=== PATIENT | male | born 1965 | race Caucasian/White ===

== ENCOUNTER → 2019-01-30 | Outpatient (CLI) | payer BC ==
[~2019-01-30] MED LIST: ASPITAB37 PO; CITA-77 PO; GEMF600T7 PO; OMEP20TA PO
[2019-01-30 10:54] LABS: Basophils # (auto) 0 uL; Basophils % (auto) 0.4 % (0.0-2.0); Eosinophils # (auto) 0.2 uL; Eosinophils % (auto) 2.4 % (0.0-7.0); Hematocrit 44.3 % (41.0-53.0); Hemoglobin 15.2 g/dL (13.5-17.5); Lymphocytes # (auto) 2.1 uL; Lymphocytes % (auto) 29.3 % (10.0-50.0); Mean Corpuscular Hemoglobin 32.1 pg (28.0-32.0); Mean Corpuscular Hgb Conc. 34.3 g/dL (32.0-36.0); Mean Corpuscular Volume 93.3 fL (80.0-100.0); Monocytes # (auto) 0.5 uL; Monocytes % (auto) 7.6 % (0.0-12.0); Neutrophils # (auto) 4.2 uL; Neutrophils % (auto) 60.3 % (37.0-80.0); Platelet Count (auto) 221 10^3/uL (140-450); Red Blood Cells 4.74 10^6/uL (4.5-5.90); Red Cell Distribution Width 12.7 % (11.8-14.3)
[2019-01-30 11:12] LABS: Urine Blood Negative /uL (Negative); Urine Specific Gravity 1.014 (1.001-1.035)
[2019-01-30 11:37] LABS: Magnesium 2.2 mg/dL (1.6-2.6); Potassium 4.1 mmol/L (3.5-5.1)
[2019-01-30 11:44] LABS: Albumin 4.1 g/dL (3.4-5.0); BUN/Creatinine Ratio 13.6; Bilirubin, Total 0.5 mg/dL (0.2-1.0); Calcium 9.1 mg/dL (8.5-10.1); Total Protein 7.8 g/dL (6.4-8.2); Uric Acid 7.5 mg/dL (3.5-7.2)
[2019-01-30 11:45] LABS: Free T4 (Free Thyroxine) 1.05 ng/dL (0.89-1.76); Prostate Specific Antigen 0.4 ng/mL (0.0-4.0)
[2019-01-30 11:46] LABS: T3 Total 0.88 ng/mL (0.60-1.81)
== END | disposition home or self-care (01) ==
LOC: LAB 10:33
DX: Z12.5 Encounter for screening for malignant neoplasm of prostate (principal); Z12.11 Encounter for screening for malignant neoplasm of colon; K21.9 Gastro-esophageal reflux disease without esophagitis; Z76.89 Persons encountering health services in other specified circumstances
CPT/HCPCS: 36415; 80053; 80061; 81003; 82306; 82607; 83036; 83735; 84153; 84439; 84443; 84480; 84550; 85025

== ENCOUNTER 2019-02-08 20:51 | Emergency (ER) | payer BC ==
[~2019-02-08] VITALS: Ht 185.4 cm; Wt 104.3 kg
[2019-02-08 21:39] LABS: Basophils # (auto) 0.1 uL; Basophils % (auto) 0.7 % (0.0-2.0); Eosinophils # (auto) 0.2 uL; Eosinophils % (auto) 2.4 % (0.0-7.0); Hematocrit 42.1 % (41.0-53.0); Hemoglobin 14.7 g/dL (13.5-17.5); Lymphocytes # (auto) 2.5 uL; Lymphocytes % (auto) 34.2 % (10.0-50.0); Mean Corpuscular Hemoglobin 32.9 pg (28.0-32.0); Mean Corpuscular Hgb Conc. 35.1 g/dL (32.0-36.0); Mean Corpuscular Volume 93.9 fL (80.0-100.0); Monocytes # (auto) 0.6 uL; Monocytes % (auto) 8.5 % (0.0-12.0); Neutrophils % (auto) 54.2 % (37.0-80.0); Nucleated Red Blood Cells % 0.1 %; Platelet Count (auto) 228 10^3/uL (140-450); Red Blood Cells 4.48 10^6/uL (4.5-5.90); Red Cell Distribution Width 12.4 % (11.8-14.3); White Blood Cell 7.5 10^3/uL (4.4-10.8)
[2019-02-08 21:54] LABS: INR 0.99 (0.9-1.15); Partial Thromboplastin Time 24.3 sec (23.64-32.05)
[2019-02-08 21:55] LABS: Albumin 3.8 g/dL (3.4-5.0); Anion Gap 7 (5-15); BUN/Creatinine Ratio 14.5; Blood Urea Nitrogen 22 mg/dL (7-18); Carbon Dioxide 24 mmol/L (21-32); Chloride 108 mmol/L (98-107); GFR African American 62 mL/min; GFR Non-African American 51 mL/min; Glucose 98 mg/dL (74-106); Magnesium 2.2 mg/dL (1.6-2.6); Sodium 139 mmol/L (136-145)
[2019-02-08 22:01] LABS: Alanine Aminotransferase 27 U/L (16-61); Alkaline Phosphatase 57 U/L (45-117); Aspartate Aminotransferase 11 U/L (15-37); Bilirubin, Total 0.2 mg/dL (0.2-1.0); Total Protein 7.4 g/dL (6.4-8.2)
[2019-02-09] MEDS ORDERED: LORazepam 0.5 MG TAB PO ONE
[2019-02-09 04:55] VITALS: BP 125/89
== END 2019-02-09 05:16 | disposition home or self-care (01) ==
LOC: ER 20:53 → EEVIPCON 20:53 → ER 02-09 05:16
DX: F41.9 Anxiety disorder, unspecified (principal); F32.9 Major depressive disorder, single episode, unspecified; K21.9 Gastro-esophageal reflux disease without esophagitis; E78.5 Hyperlipidemia, unspecified; Z88.0 Allergy status to penicillin
CPT/HCPCS: 36415; 71045; 80053; 83036; 83735; 83880; 84484; 85025; 85610; 85730; 93005; 99284; J7030

== ENCOUNTER → 2019-06-11 | Outpatient (CLI) | payer BC ==
[2019-06-11 15:35] LABS: Basophils # (auto) 0 uL; Basophils % (auto) 0.4 % (0.0-2.0); Eosinophils # (auto) 0.1 uL; Eosinophils % (auto) 2.2 % (0.0-7.0); Hematocrit 49.1 % (41.0-53.0); Hemoglobin 16.4 g/dL (13.5-17.5); Lymphocytes # (auto) 2.1 uL; Lymphocytes % (auto) 32.5 % (10.0-50.0); Mean Corpuscular Hemoglobin 31.4 pg (28.0-32.0); Mean Corpuscular Hgb Conc. 33.5 g/dL (32.0-36.0); Mean Corpuscular Volume 93.8 fL (80.0-100.0); Monocytes # (auto) 0.5 uL; Neutrophils # (auto) 3.6 uL; Neutrophils % (auto) 56.9 % (37.0-80.0); Platelet Count (auto) 237 10^3/uL (140-450); Red Blood Cells 5.23 10^6/uL (4.5-5.90); Red Cell Distribution Width 12.4 % (11.8-14.3); White Blood Cell 6.3 10^3/uL (4.4-10.8)
[2019-06-11 15:52] LABS: Urine Bacteria NONE SEEN /hpf (None Seen); Urine Blood Negative /uL (Negative); Urine Specific Gravity 1.011 (1.001-1.035); Urine WBC 7 /hpf (0 - 3)
[2019-06-11 16:05] LABS: Potassium 4.3 mmol/L (3.5-5.1); Uric Acid 6.6 mg/dL (3.5-7.2)
[2019-06-11 16:12] LABS: Albumin 4.2 g/dL (3.4-5.0); Bilirubin, Total 0.7 mg/dL (0.2-1.0); Calcium 9.4 mg/dL (8.5-10.1)
[2019-06-11 16:23] LABS: Free T3 2.99 pg/mL (2.3-4.2); Free T4 (Free Thyroxine) 1.04 ng/dL (0.89-1.76)
[2019-06-11 16:24] LABS: Folate (Folic Acid) 15.14 ng/mL (5.38-24)
== END | disposition home or self-care (01) ==
LOC: LAB 15:08
PROVIDERS: ATTEND Internal Medicine
DX: Z13.228 Encounter for screening for other metabolic disorders (principal); Z13.21 Encounter for screening for nutritional disorder; Z13.29 Encounter for screening for other suspected endocrine disorder; R73.09 Other abnormal glucose; D51.0 Vitamin B12 deficiency anemia due to intrinsic factor deficiency; J44.9 Chronic obstructive pulmonary disease, unspecified; I10 Essential (primary) hypertension; E78.2 Mixed hyperlipidemia
CPT/HCPCS: 36415; 80053; 80061; 81001; 82306; 82607; 82746; 83036; 84436; 84439; 84443; 84481; 84550; 85025; 86376

== ENCOUNTER → 2020-03-26 | Outpatient (CLI) | payer OTHER | END | disposition home or self-care (01) | LOC: LAB 09:17 | PROVIDERS: ATTEND Nurse Practitioner Family | DX: Z20.828 Contact with and (suspected) exposure to other viral communicable diseases (principal) ==

== ENCOUNTER → 2020-07-15 | Outpatient (CLI) | payer OTHER | END | disposition home or self-care (01) | LOC: LAB 08:07 | PROVIDERS: ATTEND Nurse Practitioner Family | DX: U07.1 COVID-19 (principal) | CPT/HCPCS: C9803; U0003 ==

== ENCOUNTER → 2021-01-12 | Outpatient (CLI) | payer BC ==
[~2021-01-12] MED LIST changes: +GEMF-19 PO; -GEMF600T7 PO
[2021-01-12 09:53] LABS: Basophils # (auto) 0.1 10 ^3/uL (0-0.2); Basophils % (auto) 0.5 % (0.0-2.0); Eosinophils # (auto) 0.3 10 ^3/uL (0-0.8); Eosinophils % (auto) 2.7 % (0.0-7.0); Hematocrit 46.8 % (41.0-53.0); Hemoglobin 16.6 g/dL (13.5-17.5); Lymphocytes # (auto) 3.1 10 ^3/uL (0.4-5.4); Lymphocytes % (auto) 29.7 % (10.0-50.0); Mean Corpuscular Hemoglobin 33.1 pg (28.0-32.0); Mean Corpuscular Hgb Conc. 35.4 g/dL (32.0-36.0); Mean Corpuscular Volume 93.6 fL (80.0-100.0); Monocytes # (auto) 0.9 10 ^3/uL (0-1.3); Monocytes % (auto) 8.3 % (0.0-12.0); Neutrophils # (auto) 6.1 10 ^3/uL (1.6-8.6); Neutrophils % (auto) 58.8 % (37.0-80.0); Nucleated Red Blood Cells % 0.3 %; Platelet Count (auto) 281 10^3/uL (140-450); Red Cell Distribution Width 12.5 % (11.8-14.3); White Blood Cell 10.4 10^3/uL (4.4-10.8)
[2021-01-12 10:06] LABS: Albumin 4.3 g/dL (3.4-5.0); Calcium 9.4 mg/dL (8.5-10.1); Potassium 4.2 mmol/L (3.5-5.1)
[2021-01-12 10:10] LABS: BUN/Creatinine Ratio 20.4; Bilirubin, Total 0.4 mg/dL (0.2-1.0); Total Protein 8.9 g/dL (6.4-8.2)
[2021-01-12 11:25] LABS: Prostate Specific Antigen 0.59 ng/mL (0.0-4.0)
== END | disposition home or self-care (01) ==
LOC: LAB 09:39
PROVIDERS: ATTEND Physician Assistant
DX: E78.1 Pure hyperglyceridemia (principal); E78.2 Mixed hyperlipidemia; R35.1 Nocturia; E53.8 Deficiency of other specified B group vitamins; R03.0 Elevated blood-pressure reading, without diagnosis of hypertension; Z87.442 Personal history of urinary calculi
CPT/HCPCS: 36415; 80053; 80061; 82607; 84153; 85025

== ENCOUNTER → 2021-07-29 | Outpatient (CLI) | payer BC ==
[2021-07-29 08:22] LABS: Basophils # (auto) 0.1 10 ^3/uL (0-0.2); Basophils % (auto) 0.6 % (0.0-2.0); Eosinophils # (auto) 0.2 10 ^3/uL (0-0.8); Eosinophils % (auto) 2.4 % (0.0-7.0); Hematocrit 41.9 % (41.0-53.0); Hemoglobin 14.5 g/dL (13.5-17.5); Lymphocytes # (auto) 2.4 10 ^3/uL (0.4-5.4); Lymphocytes % (auto) 29.2 % (10.0-50.0); Mean Corpuscular Hemoglobin 32.4 pg (28.0-32.0); Mean Corpuscular Hgb Conc. 34.6 g/dL (32.0-36.0); Mean Corpuscular Volume 93.6 fL (80.0-100.0); Monocytes # (auto) 0.6 10 ^3/uL (0-1.3); Monocytes % (auto) 6.7 % (0.0-12.0); Neutrophils # (auto) 5.1 10 ^3/uL (1.6-8.6); Neutrophils % (auto) 61.1 % (37.0-80.0); Red Blood Cells 4.48 10^6/uL (4.5-5.90); Red Cell Distribution Width 12.7 % (11.8-14.3); White Blood Cell 8.3 10^3/uL (4.4-10.8)
[2021-07-29 09:37] LABS: Albumin 4.1 g/dL (3.4-5.0); Calcium 9.4 mg/dL (8.5-10.1); Potassium 4.1 mmol/L (3.5-5.1)
[2021-07-29 09:44] LABS: BUN/Creatinine Ratio 19.8; Bilirubin, Total 0.5 mg/dL (0.2-1.0); Total Protein 7.5 g/dL (6.4-8.2)
== END | disposition home or self-care (01) ==
LOC: LAB 08:11
PROVIDERS: ATTEND Nurse Practitioner Family
DX: F41.9 Anxiety disorder, unspecified (principal); E78.2 Mixed hyperlipidemia; F42.9 Obsessive-compulsive disorder, unspecified
CPT/HCPCS: 36415; 80053; 80061; 85025

== ENCOUNTER → 2022-01-03 | Outpatient (CLI) | payer BC | END | disposition home or self-care (01) | LOC: XYW 10:36 | PROVIDERS: ATTEND Internal Medicine | DX: R00.2 Palpitations (principal) | CPT/HCPCS: 93306 ==

== ENCOUNTER → 2022-04-11 | Outpatient (CLI) | payer BC ==
[2022-04-11 09:14] VITALS: BP 146/86
== END | disposition home or self-care (01) ==
LOC: XY 08:11
PROVIDERS: ATTEND Internal Medicine
DX: R00.2 Palpitations (principal); R73.03 Prediabetes; E78.5 Hyperlipidemia, unspecified; F41.1 Generalized anxiety disorder
CPT/HCPCS: 78452; 93017; A9500

== ENCOUNTER → 2022-04-15 | Outpatient (CLI) | payer BC ==
[2022-04-15 13:55] LABS: Basophils # (auto) 0 10 ^3/uL (0-0.2); Basophils % (auto) 0.5 % (0.0-2.0); Eosinophils # (auto) 0.2 10 ^3/uL (0-0.8); Eosinophils % (auto) 2.6 % (0.0-7.0); Hematocrit 42.6 % (41.0-53.0); Hemoglobin 13.9 g/dL (13.5-17.5); Lymphocytes # (auto) 2.6 10 ^3/uL (0.4-5.4); Lymphocytes % (auto) 32.6 % (10.0-50.0); Mean Corpuscular Hemoglobin 30.9 pg (28.0-32.0); Mean Corpuscular Hgb Conc. 32.7 g/dL (32.0-36.0); Mean Corpuscular Volume 94.6 fL (80.0-100.0); Monocytes # (auto) 0.6 10 ^3/uL (0-1.3); Monocytes % (auto) 7.7 % (0.0-12.0); Neutrophils # (auto) 4.5 10 ^3/uL (1.6-8.6); Neutrophils % (auto) 56.6 % (37.0-80.0); Nucleated Red Blood Cells % 0.1 %; Red Cell Distribution Width 12.9 % (11.8-14.3)
[2022-04-15 14:19] LABS: Anion Gap 7 (5-15); Blood Urea Nitrogen 27 mg/dL (7-18); Calcium 9.1 mg/dL (8.5-10.1); Carbon Dioxide 26 mmol/L (21-32); Chloride 105 mmol/L (98-107); Glucose 80 mg/dL (74-106); Potassium 4.6 mmol/L (3.5-5.1); Sodium 138 mmol/L (136-145)
[2022-04-15 14:24] LABS: Alanine Aminotransferase 29 U/L (16-61); Alkaline Phosphatase 65 U/L (45-117); Aspartate Aminotransferase 16 U/L (15-37); BUN/Creatinine Ratio 21.1; Bilirubin, Total 0.3 mg/dL (0.2-1.0); Cholesterol 243 mg/dL (< 200); GFR African American 75 mL/min; GFR Non-African American 62 mL/min; HDL Cholesterol 35 mg/dL (40-59); Total Protein 7.6 g/dL (6.4-8.2); Triglycerides 421 mg/dL (< 150)
[2022-04-15 14:42] LABS: Free T4 (Free Thyroxine) 0.94 ng/dL (0.89-1.76); Prostate Specific Antigen 0.43 ng/mL (0.0-4.0)
== END | disposition home or self-care (01) ==
LOC: LAB 13:45
PROVIDERS: ATTEND Nurse Practitioner Family
DX: Z00.00 Encounter for general adult medical examination without abnormal findings (principal); E78.2 Mixed hyperlipidemia; F41.9 Anxiety disorder, unspecified; R00.2 Palpitations
CPT/HCPCS: 36415; 80053; 80061; 82306; 84153; 84439; 84443; 85025

== ENCOUNTER 2022-07-18 06:39 | Day surgery (SDC) | payer BC ==
[2022-07-13 10:16] LABS: Basophils # (auto) 0 10 ^3/uL (0-0.2); Basophils % (auto) 0.7 % (0.0-2.0); Eosinophils # (auto) 0.2 10 ^3/uL (0-0.8); Eosinophils % (auto) 2.7 % (0.0-7.0); Hematocrit 41.7 % (41.0-53.0); Hemoglobin 14.3 g/dL (13.5-17.5); Lymphocytes # (auto) 2.8 10 ^3/uL (0.4-5.4); Lymphocytes % (auto) 37.7 % (10.0-50.0); Mean Corpuscular Hemoglobin 32.2 pg (28.0-32.0); Mean Corpuscular Hgb Conc. 34.2 g/dL (32.0-36.0); Mean Corpuscular Volume 94.1 fL (80.0-100.0); Monocytes # (auto) 0.6 10 ^3/uL (0-1.3); Monocytes % (auto) 7.6 % (0.0-12.0); Neutrophils # (auto) 3.8 10 ^3/uL (1.6-8.6); Neutrophils % (auto) 51.3 % (37.0-80.0); Nucleated Red Blood Cells % 0.1 %; Red Blood Cells 4.43 10^6/uL (4.5-5.90); Red Cell Distribution Width 12.4 % (11.8-14.3); White Blood Cell 7.4 10^3/uL (4.4-10.8)
[2022-07-13 10:24] LABS: Anion Gap 3 (5-15); Carbon Dioxide 28 mmol/L (21-32); Chloride 108 mmol/L (98-107); Glucose 87 mg/dL (74-106); Potassium 4.4 mmol/L (3.5-5.1); Sodium 139 mmol/L (136-145)
[2022-07-13 10:25] LABS: Alanine Aminotransferase 39 U/L (16-61); Albumin 3.8 g/dL (3.4-5.0); Alkaline Phosphatase 63 U/L (45-117); Aspartate Aminotransferase 19 U/L (15-37); BUN/Creatinine Ratio 14.5; Bilirubin, Total < 0.1 mg/dL (0.2-1.0); Blood Urea Nitrogen 16 mg/dL (7-18); Calcium 9.1 mg/dL (8.5-10.1); GFR African American 89 mL/min; GFR Non-African American 74 mL/min; Total Protein 7.4 g/dL (6.4-8.2)
[2022-07-13 10:27] LABS: INR 1.03 (0.9-1.15); Partial Thromboplastin Time 25.1 sec (24.6-33.4)
[2022-07-18] VITALS (7 sets, daily range): BP systolic 108–137; BP diastolic 68–87
[~2022-07-18] VITALS: Ht 185.4 cm; Wt 106.6 kg
[~2022-07-18 06:39] MED LIST changes: +ALPR0.5T PO; +ASPI1TAB20 PO; +ATOR20TA50 PO; +CITA-73 PO; -CITA-77 PO; +CLOB0.059 TOP; -GEMF-19 PO
[2022-07-18] MEDS ORDERED: ANGIOMAX 250 MG VIAL IV ONE (07:44)
[2022-07-18] MEDS ORDERED: HEPARIN SODIUM (PORCINE) 5000 UNITS/ML 1ML VIAL ONE (07:45)
[2022-07-18] MEDS ORDERED: VERAPAMIL 2.5MG/ML INJ 2ML VIAL IV ONE (07:45)
[2022-07-18] MEDS ORDERED: SODIUM CHL 0.9% 50 ML ONE (07:45)
[2022-07-18] MEDS ORDERED: fentaNYL CITRATE 100 MCG/2 ML VL ONE (07:45)
[2022-07-18] MEDS ORDERED: MIDAZOLAM HCL 2MG/2ML 2ml VIAL (1mg/ml) ONE (07:45)
[2022-07-18] MEDS ORDERED: LIDOCAINE 2%HCL (LOCAL ANESTH.) INJ 20ML MDV ONE ×2 (07:46→08:37)
[2022-07-18] MEDS ORDERED: HEPARIN IN NS 1000Units/500mL 0 ML ONE (07:46)
[2022-07-18] MEDS ORDERED: IODIXANOL 320MG/ML 100ML BTL IV ONE ×2 (07:46→08:37)
[2022-07-18] MEDS ORDERED: ASPirin 325 MG TAB ONE (10:03)
[2022-07-18] MEDS ORDERED: CLOPIDOGREL 300 MG TAB ONE (10:03)
== END 2022-07-18 12:33 | disposition home or self-care (01) ==
LOC: CATH 06:39
PROVIDERS: ATTEND Internal Medicine
DX: I25.10 Atherosclerotic heart disease of native coronary artery without angina pectoris (principal); I10 Essential (primary) hypertension; R94.39 Abnormal result of other cardiovascular function study; R00.2 Palpitations; Z79.899 Other long term (current) drug therapy; Z20.822 Contact with and (suspected) exposure to COVID-19
CPT/HCPCS: 36415; 80053; 85025; 85610; 85730; 93458; C1726; C1769; C1874; C1887; C1894; C9600; J0583; J1644; J2250; J3010; Q9967; U0003; 99152; 99153

== ENCOUNTER → 2023-04-04 | Outpatient (CLI) | payer BC ==
[2023-04-04 08:39] LABS: Basophils # (auto) 0.1 10 ^3/uL (0-0.2); Basophils % (auto) 0.8 % (0.0-2.0); Eosinophils # (auto) 0.3 10 ^3/uL (0-0.8); Eosinophils % (auto) 5.1 % (0.0-7.0); Hematocrit 42.4 % (41.0-53.0); Hemoglobin 14.4 g/dL (13.5-17.5); Lymphocytes # (auto) 2.4 10 ^3/uL (0.4-5.4); Lymphocytes % (auto) 37.5 % (10.0-50.0); Mean Corpuscular Hemoglobin 32.1 pg (28.0-32.0); Mean Corpuscular Hgb Conc. 34.1 g/dL (32.0-36.0); Mean Corpuscular Volume 94.2 fL (80.0-100.0); Monocytes # (auto) 0.6 10 ^3/uL (0-1.3); Monocytes % (auto) 9.5 % (0.0-12.0); Neutrophils % (auto) 47.1 % (37.0-80.0); Nucleated Red Blood Cells % 0.2 %; Red Cell Distribution Width 12.2 % (11.8-14.3); White Blood Cell 6.5 10^3/uL (4.4-10.8)
[2023-04-04 09:17] LABS: Potassium 4.2 mmol/L (3.5-5.1)
[2023-04-04 09:25] LABS: Albumin 3.8 g/dL (3.4-5.0); BUN/Creatinine Ratio 21.7 (10.0-20.0); Bilirubin, Total 0.4 mg/dL (0.2-1.0); Calcium 9.1 mg/dL (8.5-10.1); Total Protein 7.4 g/dL (6.4-8.2)
== END | disposition home or self-care (01) ==
LOC: LAB 08:02
DX: E78.5 Hyperlipidemia, unspecified (principal); R73.03 Prediabetes
CPT/HCPCS: 36415; 80053; 80061; 83036; 84439; 84443; 85025

== ENCOUNTER → 2023-10-06 | Outpatient (CLI) | payer BC ==
[2023-10-06 11:22] LABS: Triglycerides 169 mg/dL (< 150)
[2023-10-06 11:23] LABS: LDL Cholesterol 112 mg/dL (< 100)
[2023-10-06 11:24] LABS: Cholesterol 189 mg/dL (< 200); HDL Cholesterol 45 mg/dL (40-59)
== END | disposition home or self-care (01) ==
LOC: LAB 09:52
DX: E78.5 Hyperlipidemia, unspecified (principal)
CPT/HCPCS: 36415; 80061

== ENCOUNTER → 2023-12-12 | Outpatient (CLI) | payer BC | END | disposition home or self-care (01) | LOC: XYW 08:35 | PROVIDERS: ATTEND Internal Medicine | DX: I25.10 Atherosclerotic heart disease of native coronary artery without angina pectoris (principal); I51.7 Cardiomegaly | CPT/HCPCS: 93306 ==

== ENCOUNTER → 2024-07-10 | Outpatient (CLI) | payer BC ==
[2024-07-10 08:29] LABS: Basophils # (auto) 0.1 10 ^3/uL (0-0.2); Basophils % (auto) 0.6 % (0.0-2.0); Eosinophils # (auto) 0.4 10 ^3/uL (0-0.8); Eosinophils % (auto) 3.7 % (0.0-7.0); Hematocrit 42.8 % (41.0-53.0); Lymphocytes # (auto) 2.4 10 ^3/uL (0.4-5.4); Mean Corpuscular Hgb Conc. 35.1 g/dL (32.0-36.0); Mean Corpuscular Volume 94.1 fL (80.0-100.0); Monocytes # (auto) 0.9 10 ^3/uL (0-1.3); Monocytes % (auto) 7.9 % (0.0-12.0); Neutrophils # (auto) 7.2 10 ^3/uL (1.6-8.6); Neutrophils % (auto) 65.8 % (37.0-80.0); Platelet Count (auto) 250 10^3/uL (140-450); Red Blood Cells 4.55 10^6/uL (4.5-5.90); Red Cell Distribution Width 12.4 % (11.8-14.3); White Blood Cell 10.9 10^3/uL (4.4-10.8)
[2024-07-10 08:47] LABS: Alanine Aminotransferase 27 U/L (7-40); Albumin 4.5 g/dL (3.2-4.8); Alkaline Phosphatase 73 U/L (46-116); Anion Gap 7 (5-15); Aspartate Aminotransferase 11 U/L (13-40); BUN/Creatinine Ratio 17.8 (10.0-20.0); Blood Urea Nitrogen 19 mg/dL (9-23); Calcium 10.2 mg/dL (8.7-10.4); Carbon Dioxide 27 mmol/L (20-31); Chloride 106 mmol/L (98-107); Cholesterol 240 mg/dL (< 200); Glucose 88 mg/dL (74-106); LDL Cholesterol 150 mg/dL (< 100); Potassium 4.8 mmol/L (3.5-5.1); Sodium 140 mmol/L (136-145); Triglycerides 227 mg/dL (< 150)
[2024-07-10 08:48] LABS: Bilirubin, Total 0.4 mg/dL (0.2-1.0); HDL Cholesterol 43 mg/dL (40-59); Total Protein 7.5 g/dL (5.7-8.2)
== END | disposition home or self-care (01) ==
LOC: LAB 07:37
PROVIDERS: ATTEND Nurse Practitioner Family
DX: I10 Essential (primary) hypertension (principal); E78.5 Hyperlipidemia, unspecified; R73.03 Prediabetes; R68.82 Decreased libido; F41.1 Generalized anxiety disorder; Z79.899 Other long term (current) drug therapy
CPT/HCPCS: 36415; 80053; 80061; 82043; 83036; 84153; 84403; 84443; 85025

== ENCOUNTER → 2024-08-06 | Outpatient (CLI) | payer BC | END | disposition home or self-care (01) | LOC: LAB 12:07 | PROVIDERS: ATTEND Nurse Practitioner Family | DX: R79.89 Other specified abnormal findings of blood chemistry (principal) | CPT/HCPCS: 36415; 84153; 84403 ==

== ENCOUNTER → 2024-12-31 | Outpatient (CLI) | payer BC ==
[2024-12-31 09:47] LABS: Basophils # (auto) 0 10 ^3/uL (0-0.2); Basophils % (auto) 0.5 % (0.0-2.0); Eosinophils # (auto) 0.3 10 ^3/uL (0-0.8); Eosinophils % (auto) 3.3 % (0.0-7.0); Hematocrit 44.7 % (41.0-53.0); Hemoglobin 15.5 g/dL (13.5-17.5); Lymphocytes # (auto) 2.7 10 ^3/uL (0.4-5.4); Lymphocytes % (auto) 34.3 % (10.0-50.0); Mean Corpuscular Hemoglobin 32.5 pg (28.0-32.0); Mean Corpuscular Hgb Conc. 34.7 g/dL (32.0-36.0); Mean Corpuscular Volume 93.5 fL (80.0-100.0); Monocytes # (auto) 0.6 10 ^3/uL (0-1.3); Neutrophils # (auto) 4.3 10 ^3/uL (1.6-8.6); Neutrophils % (auto) 53.9 % (37.0-80.0); Nucleated Red Blood Cells % 0.1 %; Platelet Count (auto) 209 10^3/uL (140-450); Red Blood Cells 4.78 10^6/uL (4.5-5.90); Red Cell Distribution Width 12.9 % (11.8-14.3); White Blood Cell 7.9 10^3/uL (4.4-10.8)
[2024-12-31 10:10] LABS: Alanine Aminotransferase 31 U/L (7-40); Albumin 4.6 g/dL (3.2-4.8); Alkaline Phosphatase 64 U/L (46-116); Anion Gap 8 (5-15); Aspartate Aminotransferase 14 U/L (13-40); BUN/Creatinine Ratio 19.8 (10.0-20.0); Bilirubin, Total 0.5 mg/dL (0.2-1.0); Blood Urea Nitrogen 20 mg/dL (9-23); Calcium 10.2 mg/dL (8.7-10.4); Carbon Dioxide 24 mmol/L (20-31); Chloride 106 mmol/L (98-107); Glucose 99 mg/dL (74-106); Potassium 4.5 mmol/L (3.5-5.1); Sodium 138 mmol/L (136-145); Total Protein 7.7 g/dL (5.7-8.2)
== END | disposition home or self-care (01) ==
LOC: LAB 09:11
PROVIDERS: ATTEND Internal Medicine
DX: I10 Essential (primary) hypertension (principal); I25.10 Atherosclerotic heart disease of native coronary artery without angina pectoris; E78.5 Hyperlipidemia, unspecified; R79.89 Other specified abnormal findings of blood chemistry
CPT/HCPCS: 36415; 80053; 84153; 84403; 85025

== ENCOUNTER 2025-01-07 11:10 | Inpatient (IN) | payer BC ==
[~2025-01-07] VITALS: Ht 188 cm; Wt 107.4 kg
--- NOTE | 2025-01-07 11:25 | ED.PDOC ---
GI ASSESSMENT HPI Comments 59-year-old male with PMHx Anxiety, Depression, GERD brought in by EMS presents with a chief complaint of abdominal pain with associated nausea, vomiting, and diarrhea. Patient states that last night he ate Sudanese food last night, and this morning around 0300 started to have onset of his symptoms. Patient mentions that his abdominal pain is diffuse, nonradiating, and started hurting after the vomiting. Patient mentions that he has been unable to hold anything down. Patient has history of heart stents. No other symptoms or modifying factors present at this time. Chief Complaint: Nausea/Vomiting Time Seen by MD: 11:14 Reviewed Notes: Medications, Allergies Allergies: Coded Allergies: Penicillins (Verified Allergy, Unknown, 12/18/17) Home Meds Reported Medications Clobetasol Propionate (Clobetasol Propionate) 0.05 % Renetta, 1 APPLIC TOP BID for scalp 07/13/22 Alprazolam (Xanax) 0.5 Mg Tb, 1 TAB PO TID PRN for ANXIETY 07/13/22 Citalopram Hydrobromide (Citalopram Hydrobromide) 40 Mg Tab, 40 MG PO DAILY for depression 07/13/22 Atorvastatin Calcium (ATORVASTATIN CALCIUM) 20 Mg Tab, 1 TAB PO DAILY for cholesterol 07/13/22 Aspirin (Aspir-81) 81 Mg Tab, 1 TAB PO DAILY for heart 07/13/22 Ifsqnnl-Juhgiebfsnwwc-Zccccwiy (Excedrin Extra Strength) Expr Gel Tab, 1 GEL PO PRN, TAB 12/18/17 Omeprazole (Gnp Omeprazole) 20 Mg Tab, 1 TAB PO DAILY 12/18/17 Information Source: Patient, Emergency Med Personnel Mode of Arrival: EMS Timing: Hours Duration: Since onset Prehospital treatment: Research Attorney Quality: Aching Vomitus: Food Particles Stool: Watery, Brown Severity: Moderate Recent: None Recent Hx of: None Pain Location: Diffuse Modifying Factors: Food Associated sign and symptoms: Nausea, Vomiting, Diarrhea, Abdominal Pain Past Medical History PAST MEDICAL HISTORY: Anxiety, Depression, GERD, High Lipids Surgical History: PTCA Family History Family History: Unknown Social History Smoker: Non-Smoker Alcohol: Occasionally Drugs: Denies Drug Use Lives In: Home Constitutional: denies: chills, diaphoresis, fatigue, fever, malaise, sweats, weakness, others EENTM: denies: blurred vision, double vision, ear bleeding, ear discharge, ear drainage, ear pain, ear ringing, eye pain, eye redness, hearing loss, mouth pain, mouth swelling, nasal discharge, nose bleeding, nose congestion, nose pain, photophobia, tearing, throat pain, throat swelling, voice changes, others Respiratory: denies: cough, hemoptysis, orthopnea, SOB at rest, shortness of breath, SOB with excertion, stridor, wheezing, others Cardiovascular: denies: chest pain, dizzy spells, diaphoresis, Dyspnea on exertion, edema, irregular heart beat, left arm pain, lightheadedness, palpitations, PND, syncope, others Gastrointestinal: reports: abdominal pain, diarrhea, nausea, vomiting; denies: abdomen distended, blood streaked bowels, constipated, dysphagia, difficulty swallowing, hematemesis, melena, poor appetite, poor fluid intake, rectal bleeding, rectal pain, others Genitourinary: denies: burning, dysuria, flank pain, frequency, hematuria, incontinence, penile discharge, penile sore, pain, testicle pain, testicle swelling, urgency, others Neurological: denies: dizziness, fainting, headache, left sided numbness, left sided weakness, numbness, paresthesia, pre-existing deficit, right sided numbness, right sided weakness, seizure, speech problems, tingling, tremors, weakness, others Musculoskeletal: denies: back pain, gout, joint pain, joint swelling, muscle pain, muscle stiffness, neck pain, others Integumetry: denies: bruises, change in color, change in hair/nails, dryness, laceration, lesions, lumps, rash, wounds, others Allergic/Immunocompromised: denies: Difficulty Healing, Frequent Infections, Hives, Itching, others Hematologic/Lymphatic: denies: anemia, blood clots, easy bleeding, easy bruising, swollen glands, others Endocrine: denies: excessive hunger, excessive sweating, excessive thirst, excessive urination, flushing, intolerance to cold, intolerance to heat, unexplained weight gain, unexplained weight loss, others Psychiatric: denies: anxiety, bipolar disorder, depression, hopeless, panic disorder, schizophrenia, sleepless, suicidal, others All Other Systems: Reviewed and Negative Physical Exam General Appearance: No Apparent Distress, Normal HEENT: Normal ENT Inspection, Pharynx Normal, TMs Normal Neck: Full Range of Motion, Non-Tender, Normal, Normal Inspection Respiratory: Chest Non-Tender, Lungs Clear, No Accessory Muscle Use, No Respiratory Distress, Normal Breath Sounds Cardiovascular: No Edema, No JVD, No Murmur, No Gallop, Normal Peripheral Pulses, Tachycardia Breast Exam: Deferred Gastrointestinal: No Organomegaly, Non Tender, No Pulsatile Mass, Normal Bowel Sounds, Soft Genitalia: Deferred Pelvic: Deferred Rectal: Deferred Extremities: No calf tenderness, Normal capillary refill, Normal inspection, Normal range of motion, Non-tender, No pedal edema Musculoskeletal : Apperance: Normal Neurologic: Alert, private duty rn II-XII nml as Tested, No Motor Deficits, Normal Affect, Normal Mood, No Sensory Deficits Cerebellar Function: Normal Reflexes: Normal Skin: Dry, Normal Color, Warm Lymphatic: No Adenopathy EKG EKG : Pulse Rate (adult): 86 Pruden: Normal Cardiac Rhythm: NSR Block: None Hypertrophy: None ST: Normal Was a procedure done? Was a procedure done?: No GI differential Dx Differential Diagnosis: AAA, Aortic dissection, Bowel Obstruction, Constipation, Diverticular disease, Gastritis/PUD, Gastroenteritis, Hernia, Hepatitis, Inflammatory BD, Pancreatitis, Urinary Obstruction, UTI, Urolithiasis, Dehydration, Food Poisoning, Bacterial, Viral, Hypovolemia, Impaction, Mass, Kidney Stone X-Ray, Labs, Meds, VS Vital Signs Date Time Temp Pulse Resp B/P (MAP) Pulse Ox O2 Delivery O2 Flow Rate FiO2 01/07/25 13:00 84 19 158/108 (125) 99 01/07/25 13:00 83 19 99 Room Air* 0 21 01/07/25 11:25 86 01/07/25 11:18 97.7 85 20 168/100 (122) 96 97.7 01/07/25 11:18 86 Lab Test 01/07/25 11:33 Range/Units White Blood Count 14.6 H 4.4-10.8 10^3/uL Red Blood Count 4.90 4.5-5.90 10^6/uL Hemoglobin 15.6 13.5-17.5 g/dL Hematocrit 45.8 41.0-53.0 % Mean Corpuscular Volume 93.4 80.0-100.0 fL Mean Corpuscular Hemoglobin 31.8 28.0-32.0 pg Mean Corpuscular Hemoglobin Concent 34.1 32.0-36.0 g/dL Red Cell Distribution Width 13.0 11.8-14.3 % Platelet Count 265 140-450 10^3/uL Mean Platelet Volume 8.6 6.9-10.8 fL Neutrophils (%) (Auto) 90.7 H 37.0-80.0 % Lymphocytes (%) (Auto) 6.1 L 10.0-50.0 % Monocytes (%) (Auto) 3.0 0.0-12.0 % Eosinophils (%) (Auto) 0.0 0.0-7.0 % Basophils (%) (Auto) 0.2 0.0-2.0 % Neutrophils # (Auto) 13.3 H 1.6-8.6 10 ^3/uL Lymphocytes # (Auto) 0.9 0.4-5.4 10 ^3/uL Monocytes # (Auto) 0.4 0-1.3 10 ^3/uL Eosinophils # (Auto) 0 0-0.8 10 ^3/uL Basophils # (Auto) 0 0-0.2 10 ^3/uL Nucleated Red Blood Cells 0.0 % Sodium Level 144 136-145 mmol/L Potassium Level 4.3 3.5-5.1 mmol/L Chloride Level 105 98-107 mmol/L Carbon Dioxide Level 21 20-31 mmol/L Anion Gap 18 H 5-15 Blood Urea Nitrogen 15 9-23 mg/dL Creatinine 0.88 0.700-1.30 mg/dL Glomerular Filtration Rate Calc 99 >90 mL/min BUN/Creatinine Ratio 17.0 10.0-20.0 Serum Glucose 141 H 74-106 mg/dL Calcium Level 9.9 8.7-10.4 mg/dL Lipase 29 12-53 U/L Current Medications Medications (Trade) Dose Ordered Sig/Thomas Route Start Time Stop Time Status Last Admin Diphenoxylate HCl/ Atropine (Lomotil Tablet) 2.5 mg ONCE ONCE PO 01/07/25 11:30 01/07/25 11:31 DC 01/07/25 12:02 Ondansetron HCl (Zofran) 4 mg ONCE ONCE IV 01/07/25 11:30 01/07/25 11:31 DC 01/07/25 12:02 Sodium Chloride 1,000 ml @ 1,000 mls/hr Q1H ONCE IV 01/07/25 11:30 01/07/25 12:29 DC 01/07/25 12:02 Ondansetron HCl (Zofran) 4 mg ONCE ONCE IV 01/07/25 12:30 01/07/25 12:31 DC 01/07/25 12:42 Haloperidol Lactate (Haldol) 5 mg ONCE ONCE IM 01/07/25 13:45 01/07/25 13:46 DC 01/07/25 14:48 Diphenhydramine HCl (Benadryl Injection) 50 mg ONCE ONCE IM 01/07/25 13:45 01/07/25 13:46 DC 01/07/25 14:48 Time of 1ST Reevaluation: 11:44 Reevaluation 1ST: Unchanged Time of 2ND Reevaluation: 15:13 Reevaluation 2ND: Improved Patient Education/Counseling: Diagnosis, Treatment, Prognosis, Need For Follow Up Family Education/Counseling: No Family Present Additional Information pt is feeling improved, but still feels a dull pain on the right flank. the ct shows an exophytic lesion. pt will be admitted for an MRI and pain control Departure 1 Departure Time of Disposition: 15:14 Impression: Primary Impression: Renal mass, right Disposition: 09 ADMITTED INPATIENT Admit to: Med Surg Condition: Serious Discharged With: Self, Friend Critical Care Note Critical Care Time?: Yes (45 min-critical care time only) Critical care comment: due to concerns for patient's condition deteriorating, the care required my highest level of attention and readiness to intervene. i assessed the patient's condition, ordered the proper tests and treatments, reassessed for response and reviewed the results. i communicated with medical personnel and formulated a plan of care. total critical care time does not include any procedures Stability Stability form required: No Heart Score Heart Score: Heart Score Response (Comments) Value History N/A 0 EKG N/A 0 Age N/A 0 Risk Factors N/A 0 Troponin N/A 0 Total 0 I personally scribed for JOSEFINA MEJIA MD ([email or web address]) on 01/07/25 at 11:25. Electronically submitted by Simba Farah ([email or web address]). JOSEFINA MEJIA MD January 07, 2025 11:25
[2025-01-07 11:47] LABS: Basophils # (auto) 0 10 ^3/uL (0-0.2); Basophils % (auto) 0.2 % (0.0-2.0); Eosinophils # (auto) 0 10 ^3/uL (0-0.8); Hematocrit 45.8 % (41.0-53.0); Hemoglobin 15.6 g/dL (13.5-17.5); Lymphocytes # (auto) 0.9 10 ^3/uL (0.4-5.4); Lymphocytes % (auto) 6.1 % (10.0-50.0); Mean Corpuscular Hemoglobin 31.8 pg (28.0-32.0); Mean Corpuscular Hgb Conc. 34.1 g/dL (32.0-36.0); Mean Corpuscular Volume 93.4 fL (80.0-100.0); Monocytes # (auto) 0.4 10 ^3/uL (0-1.3); Neutrophils # (auto) 13.3 10 ^3/uL (1.6-8.6); Neutrophils % (auto) 90.7 % (37.0-80.0); Platelet Count (auto) 265 10^3/uL (140-450); White Blood Cell 14.6 10^3/uL (4.4-10.8)
[2025-01-07 11:56] LABS: Chloride 105 mmol/L (98-107); Potassium 4.3 mmol/L (3.5-5.1); Sodium 144 mmol/L (136-145)
[2025-01-07 11:57] LABS: Anion Gap 18 (5-15); Calcium 9.9 mg/dL (8.7-10.4); Carbon Dioxide 21 mmol/L (20-31)
[2025-01-07 12:02] LABS: Blood Urea Nitrogen 15 mg/dL (9-23); Lipase 29 U/L (12-53)
[2025-01-07] MEDS: ONDANSETRON HCL 4 MG/2 ML VIAL IV ONE ×2 (12:02→12:42)
[2025-01-07] MEDS: SODIUM CHLORIDE 0.9% 1,000 ML IV ONE (12:02)
[2025-01-07] MEDS: DIPHENOXYLATE W/ATROPINE 2.5 MG TAB PO ONE (12:02)
[2025-01-07 12:03] LABS: Glucose 141 mg/dL (74-106)
--- NOTE | 2025-01-07 12:51 | DVH ---
Date: 01/07/2025 12:15 PM Examination: XY KUB ABDOMEN SINGLE VIEW History: vomiting Comparison: None TECHNIQUE: Frontal views of the abdomen was obtained. FINDINGS: Paucity of bowel gas limits evaluation. The lung bases are unremarkable. No acute osseous abnormality identified. IMPRESSION: Paucity of bowel gas limits evaluation
[2025-01-07 13:00] VITALS: PULSE 83; RESP 19; O2SAT 99
--- NOTE | 2025-01-07 14:16 | DVH ---
CT ABDOMEN AND PELVIS WITHOUT CONTRAST CLINICAL HISTORY: r/o ileus, sbo TECHNIQUE: Multiple contiguous axial images of the abdomen and pelvis without intravenous contrast. T he images were reformatted degenerate coronal and sagittal reconstructions. All CT scans at this medical facility are performed using dose modulation techniques as appropriate t o a performed exam including the following:Automated exposure control was utilized; adjustment of the MA and/or KV according to patient size; and use of iterative reconstruction technique. Radiation Dose Information: CT Dose: CTDI volume is 14.69 mGy. Dose-length product is 914.01 mGy*cm Comparison: None. FINDINGS: Evaluation of the abdomen and pelvis is limited without intravenous contrast. There is a 1.7 cm exophytic solid-appearing isodense nodule in the upper pole of the right kidney. Th ere is no evidence of nephrolithiasis or hydronephrosis. The liver, gallbladder, pancreas, kidneys, adrenal glands, and spleen appear within normal limits. There is no gross evidence of abdominal lymphadenopathy. There is no free fluid or free air. The stomach grossly appears unremarkable. The small and large bowel loops demonstrate normal caliber and distribution. The colon is mostly decompressed. A normal appearing appendix is seen in the right lower quadrant abdomen. The abdominal aorta and IVC appear within normal limits. The bladder appears unremarkable for the degree of distention. Pelvic organ appears within normal colon its. There is no gross evidence of a pelvic mass. There is no free fluid collection. There is a smal l fat containing left inguinal hernia. Lung bases are clear. There is no acute osseous abnormality. IMPRESSION: 1. There is no acute process in the abdomen and pelvis. 2. Nonspecific 1.7 cm exophytic solid-appearing isodense nodule in the upper pole of the right kidney . Further evaluation with multiphase MRI abdomen with contrast is recommended. HS:Y
[2025-01-07] MEDS: diphenhdrAMINE HCL 50 MG/1 ML VL IM ONE (14:48)
[2025-01-07] MEDS: HALOPERIDOL LACTATE 5 MG/ML INJ VIAL IM ONE (14:48)
[2025-01-07] MEDS ORDERED: ONDANSETRON HCL 4 MG/2 ML VIAL IV PRN (16:00)
[2025-01-07] MEDS ORDERED: DOCUSATE SOD 100 MG CAP PO PRN (16:00)
[2025-01-07] MEDS ORDERED: HYDROcodone-ACET 5/325MG TAB PO PRN (16:00)
[2025-01-07] MEDS ORDERED: ACETAMINOPHEN 325 MG TAB PO PRN (16:00)
[2025-01-07] MEDS ORDERED: NITROGLYCERIN 0.4 MG SL TAB SL PRN (16:30)
[2025-01-07] MEDS ORDERED: MORPHINE SULFATE INJ 2 MG/ml SYRG IV PRN (16:30)
--- NOTE | 2025-01-07 16:31 | DVHHP2 ---
History of Present Illness Reason for Visit: Acute abdominal pain History of Present Illness The patient is a 59-year-old male with past medical history of depression, anxiety, GERD, and hyperlipidemia who presented to [facility] ED with complaint of acute abdominal pain. Patient reports symptoms progressively get worse with nausea, vomiting, and diarrhea. Patient states that last night he ate Burmese food last night, and this morning around 0300 started to have onset of his symptoms, nonradiating, and started hurting after the vomiting. Patient was seen and evaluated in the ED, laboratory data shows WBC 14.6, platelets 265, sodium 144, potassium 4.3, BUN 15, creatinine 0.88, glucose 141, anion gap 18, lipase 29, blood pressure 145/89, heart rate 84, temperature 98.7 F, O2 saturation 99% on room air. Abdomen/pelvis CT revealing nonspecific 1.7 cm exophytic solid appearing isodense nodules in the upper pole of the right kidney, no acute process in the abdomen and pelvis. Patient was started on IV antibiotic regimen Flagyl, please see medication orders section in the computer. On my assessment, patient denies abdominal pain at this moment, no headache, no dizziness, no shortness of breaths, no nausea, vomiting, or diarrhea at this moment, no fever, no chills. Patient was admitted for further evaluation and medical management. Past Medical History Anxiety, Depression, GERD, High Lipids Past Surgical History PTCA Family History Reviewed, noncontributory to the management of this case. Past Social History The patient lives at home, denies smoking, alcohol or illicit drugs abuse. Review of Systems Constitutional: No: Fever, Chills, Sweats, Weakness, Malaise, Other Eyes: No: Pain, Vision change, Conjunctivae inflammation, Eyelid inflammation, Other, Redness ENT: No: Ear pain, Ear discharge, Nose pain, Nose discharge, Nose congestion, Mouth pain, Mouth swelling, Throat pain, Throat swelling, Other Respiratory: No: Cough, Dry, Shortness of breath, SOB with excertion, Wheezing, Hemoptysis, Pleuritic Pain, Sputum, Wheezing, Other Cardiovascular: No: Chest Pain, Palpitations, Orthopnea, Paroxysmal Noc. Dyspnea, Edema, Lt Headedness, Other Gastrointestinal: Nausea, Vomiting, Abdominal Pain, Diarrhea; No: Constipation, Melena, Hematochezia, Other Genitourinary: No Dysuria, No Frequency, No Incontinence, No Hematuria, No Retention, No Other Musculoskeletal: No: other, neck pain, shoulder pain, arm pain, back pain, hand pain, leg pain, foot pain Skin: No: Rash, Lesions, Jaundice, Bruising, Other Neurological: No: Weakness, Numbness, Incoordination, Change in speech, Confusion, Seizures, Other Allergies: Coded Allergies: Penicillins (Verified Allergy, Unknown, 12/18/17) Medications Current Medications Medications Dose Ordered Sig/Thomas Route Start Time Stop Time Status Last Admin Dose Admin Alprazolam 0.5 mg Q8HPRN PRN PO 01/07/25 16:00 UNV Famotidine 20 mg DAILY IV 01/08/25 10:00 UNV Citalopram Hydrobromide 40 mg DAILY PO 01/08/25 10:00 UNV Atorvastatin Calcium 20 mg HS PO 01/07/25 22:00 UNV Aspirin 81 mg DAILY PO 01/08/25 10:00 UNV Metronidazole 100 ml @ 100 mls/hr Q8HR IV 01/07/25 22:00 UNV Acetaminophen/ Hydrocodone Bitart 1 tab Q4HP PRN PO 01/07/25 16:00 UNV Ondansetron HCl 4 mg Q4HP PRN IV 01/07/25 16:00 UNV Docusate Sodium 100 mg BIDPRN PRN PO 01/07/25 16:00 UNV Acetaminophen 650 mg Q6HP PRN PO 01/07/25 16:00 UNV Sodium Chloride 1,000 ml @ 75 mls/hr [id number] IV 01/07/25 16:00 UNV Exam Vital Signs Vital Signs Date Time Temp Pulse Resp B/P (MAP) Pulse Ox O2 Delivery O2 Flow Rate FiO2 01/07/25 15:33 98.7 109 19 145/89 (107) 95 98.7 01/07/25 13:00 Room Air* 0 21 General Appearance: Alert, Oriented X3, Cooperative, No acute distress HEENT: Atraumatic, PERRLA, EOMI, Mucous membr. moist/pink Respiratory: Clear to auscultation, Normal air movement Cardiovascular: Regular rate, Normal S1, Normal S2, No murmurs Abdominal: Normal bowel sounds, Soft, No hepatospenomegaly, No masses, Other (Reports tenderness) Extremities: No clubbing, No cyanosis, No edema, Normal pulses, No tenderness/swelling Skin: No rashes, No breakdown, No significant lesion Neuro: Normal gait, Normal speech, Strength at 5/5 X4 ext, Normal tone, Sensation intact, Cranial nerves 3-12 NL, Reflexes 2+ Psych/Mental Status: Mental status NL, Mood NL Labs/Xrays Labs Test 01/07/25 11:33 Range/Units White Blood Count 14.6 H 4.4-10.8 10^3/uL Red Blood Count 4.90 4.5-5.90 10^6/uL Hemoglobin 15.6 13.5-17.5 g/dL Hematocrit 45.8 41.0-53.0 % Mean Corpuscular Volume 93.4 80.0-100.0 fL Mean Corpuscular Hemoglobin 31.8 28.0-32.0 pg Mean Corpuscular Hemoglobin Concent 34.1 32.0-36.0 g/dL Red Cell Distribution Width 13.0 11.8-14.3 % Platelet Count 265 140-450 10^3/uL Mean Platelet Volume 8.6 6.9-10.8 fL Neutrophils (%) (Auto) 90.7 H 37.0-80.0 % Lymphocytes (%) (Auto) 6.1 L 10.0-50.0 % Monocytes (%) (Auto) 3.0 0.0-12.0 % Eosinophils (%) (Auto) 0.0 0.0-7.0 % Basophils (%) (Auto) 0.2 0.0-2.0 % Neutrophils # (Auto) 13.3 H 1.6-8.6 10 ^3/uL Lymphocytes # (Auto) 0.9 0.4-5.4 10 ^3/uL Monocytes # (Auto) 0.4 0-1.3 10 ^3/uL Eosinophils # (Auto) 0 0-0.8 10 ^3/uL Basophils # (Auto) 0 0-0.2 10 ^3/uL Nucleated Red Blood Cells 0.0 % Sodium Level 144 136-145 mmol/L Potassium Level 4.3 3.5-5.1 mmol/L Chloride Level 105 98-107 mmol/L Carbon Dioxide Level 21 20-31 mmol/L Anion Gap 18 H 5-15 Blood Urea Nitrogen 15 9-23 mg/dL Creatinine 0.88 0.700-1.30 mg/dL Glomerular Filtration Rate Calc 99 >90 mL/min BUN/Creatinine Ratio 17.0 10.0-20.0 Serum Glucose 141 H 74-106 mg/dL Calcium Level 9.9 8.7-10.4 mg/dL Lipase 29 12-53 U/L PATIENT: CORI MARX ACCT: [id number] UNIT: [id number] : 1965 LOC: ER ROOM / BED: / AGE / SEX: 59 / M ADM STATUS: REG ER SERVICE 1335 ORDERING PHYSICIAN: JOSEFINA MEJIA MD PROCEDURE(s): ABPL - CT AB PEL WO CON-NO ORAL OR IV REASON: r/o ileus, sbo ORDER NUMBER(s): [id number], ACCESSION NUMBER(s): [id number] CT ABDOMEN AND PELVIS WITHOUT CONTRAST CLINICAL HISTORY: r/o ileus, sbo TECHNIQUE: Multiple contiguous axial images of the abdomen and pelvis without intravenous contrast. The images were reformatted degenerate coronal and sagittal reconstructions. All CT scans at this medical facility are performed using dose modulation techniques as appropriate to a performed exam including the following:Automated exposure control was utilized; adjustment of the MA and/or KV according to patient size; and use of iterative reconstruction technique. Radiation Dose Information: CT Dose: CTDI volume is 14.69 mGy. Dose-length product is 914.01 mGy*cm Comparison: None. FINDINGS: Evaluation of the abdomen and pelvis is limited without intravenous contrast. There is a 1.7 cm exophytic solid-appearing isodense nodule in the upper pole of the right kidney. There is no evidence of nephrolithiasis or hydronephrosis. The liver, gallbladder, pancreas, kidneys, adrenal glands, and spleen appear within normal limits. There is no gross evidence of abdominal lymphadenopathy. There is no free fluid or free air. The stomach grossly appears unremarkable. The small and large bowel loops de monstrate normal caliber and distribution. The colon is mostly decompressed. A normal appearing appendix is seen in the right lower quadrant abdomen. The abdominal aorta and IVC appear within normal limits. The bladder appears unremarkable for the degree of distention. Pelvic organ appears within normal limits. There is no gross evidence of a pelvic mass. There is no free fluid collection. There is a small fat containing left inguinal hernia. Lung bases are clear. There is no acute osseous abnormality. IMPRESSION: 1. There is no acute process in the abdomen and pelvis. 2. Nonspecific 1.7 cm exophytic solid-appearing isodense nodule in the upper pole of the right kidney. Further evaluation with multiphase MRI abdomen with contrast is recommended. Assessment/Plan Assessment/Plan Acute abdominal pain Leukocytosis, unspecified Renal mass, right Intractable nausea and vomiting Plan 1. Admit to med surge unit 2. Breathing treatment 3. Pain control management 4. IV antibiotic management 5. Management of fluids and electrolytes 6. Consultation for hospitalist 7. Diagnostic test abdomen/pelvis CT 8. DVT prophylaxis on SCDs 9. Repeat labs CBC, CMP in a.m. 10. Home medication reviewed and reconciled 11. Continue with current medical management 12. Treatment plan discussed with patient and RN. Patient verbalized understanding. Plan discussed with: Patient, Other (RN) My Orders Orders - KEVON WILEY DNP Procedure Category Date Status Time Alprazolam Tablet PHA 01/07/25 In Process (Xanax Tablet) 16:00 Famotidine Injection PHA 01/08/25 In Process (Pepcid Injection) 10:00 Citalopram Tablet PHA 01/08/25 In Process (Celexa Tablet) 10:00 Atorvastatin (Lipitor) PHA 01/07/25 In Process 22:00 Aspirin Tablet PHA 01/08/25 In Process 10:00 Blood Culture JARVIS 01/07/25 In Process 15:57 Metronidazole PHA 01/07/25 In Process 500mg/100ml (Flagyl 22:00 Metronidazole PHA 01/07/25 In Process 500mg/100ml (Flagyl 16:00 Allergies BAIRON 01/07/25 In Process 15:57 Code Status CODE 01/07/25 Transmitted 15:57 Oxygen Per Hour RT 01/07/25 Transmitted 15:57 Hydrocodone-Acet PHA 01/07/25 In Process 5/325mg Tab ([place] 16:00 Ondansetron Hcl PHA 01/07/25 In Process (Zofran) 16:00 Docusate Sodium PHA 01/07/25 In Process Capsule (Colace 16:00 Complete Blood Count LAB 01/08/25 Verified 04:00 Comprehensive LAB 01/08/25 Verified Metabolic Panel 04:00 Condition: Serious BAIRON 01/07/25 In Process 15:57 Acetaminophen Tablet PHA 01/07/25 Logged (Tylenol Tablet) 16:00 Clear Liq Diet DIET 01/07/25 Transmitted Dinner Bedrest With Bathroom BAIRON 01/07/25 In Process Privileg 15:57 Sequential BAIRON 01/07/25 In Process Compression Device Sod Chl 0.45% (Sodium PHA 01/07/25 Logged Chloride 0.45% Via 16:00 Hydralazine Injection [facility] 01/07/25 Verified (Apresoline Inject 16:30 Admit ADMIT 01/07/25 Verified 16:28 Nitroglycerin [facility] 01/07/25 Verified Sublingual (Ntrostat 16:30 Morphine Sulfate [facility] 01/07/25 Verified Injection 16:30 Notify Md Of Changes [facility] 01/07/25 Verified From Base 16:28 Seo Manager For [facility] 01/07/25 Verified 24 Hours 16:28 Emergency Dysrhythmia [facility] 01/07/25 Verified Protocol 16:28 Oxygen By Nasal RT 01/07/25 Verified Cannula 16:28 Problem List: (1) Acute abdominal pain (2) Leukocytosis, unspecified (3) Renal mass, right (4) Intractable nausea and vomiting Date of Service: January 07, 2025 Billing Provider: KEVON WILEY DNP Common Visit Codes: [id number] INP/OBS CARE (HIGH) KEVON WILEY DNP January 07, 2025 16:31
[2025-01-07 17:00] VITALS: BP 159/91; PULSE 107; RESP 14; TEMP 99.8; O2SAT 97
[2025-01-07] MEDS: SOD CHL 0.45% 1,000 ML IV SCH (17:41)
[2025-01-07] MEDS: metroNIDAZOLE 500MG/100ML 100 ML IV ONE (17:41)
[2025-01-07] MEDS ORDERED: CITA-77 PO (17:50)
[2025-01-07 18:47] LABS: Urine Bacteria None Seen /hpf (None Seen)
[2025-01-07 18:54] LABS: Urine Blood 1+ /uL (Negative); Urine Clarity Clear (Clear); Urine Color Yellow (Yellow); Urine Mucus FEW (None Seen); Urine Protein, UAD 1+ (Negative); Urine Specific Gravity 1.027 (1.001-1.035); Urine Squamous Epithelial Cell None Seen /hpf (<5); Urine Urobilinogen Normal (Negative); Urine WBC 2 /HPF (0-3)
--- NOTE | 2025-01-07 19:10 | ECG ---
[facility] Test Date: 2025-01-07 Test Time: 11:18:54 Pat Name: CORI MARX Department: ED Room: [address] [place] [address] Gender: M Aircraft Time Clerk: anusha : 1965 Requested By: JOSEFINA MEJIA Order Number: [id number] Reading MD: Measurements Intervals [place] Rate: 86 P: 37 NE: 172 QRS: 44 QRSD: 121 T: 43 QT: 412 QTc: 493 Interpretive Statements Sinus rhythm Nonspecific intraventricular conduction delay Baseline wander in lead(s) V2,V4,V6 Please click the below link to view image of tracing.
[2025-01-07 19:17] LABS: Cannabinoid Screen, Urine Pos (NEGATIVE)
[2025-01-07 19:21] LABS: Amphetamine Screen, Urine Neg (NEGATIVE); Barbiturate Scree,Urine Neg (NEGATIVE); Benzodiazephine Screen, Urine Neg (NEGATIVE); Cocaine Screen, Urine Neg (NEGATIVE); Opiate Scree,Urine Neg (NEGATIVE); Phencyclidine Screen, Urine Neg (NEGATIVE)
[2025-01-07 20:52] VITALS: BP 156/97; PULSE 103; RESP 18; TEMP 99.2; O2SAT 94
[2025-01-07] MEDS: hydrALAZINE HCL 20 MG/ML VL IV PRN (21:17)
[2025-01-07] MEDS: ATORVASTATIN 20 MG TAB PO SCH (21:18)
[2025-01-07] MEDS: metroNIDAZOLE 500MG/100ML 100 ML IV SCH (21:29)
[2025-01-07 23:30] VITALS: BP 154/96; PULSE 101; RESP 17; TEMP 98.2; O2SAT 97
[2025-01-08 01:00] VITALS: BP 135/88; PULSE 94; RESP 17; TEMP 98.6; O2SAT 96
[2025-01-08 05:00] VITALS: BP 157/99; PULSE 93; RESP 17; TEMP 98.6; O2SAT 97
[2025-01-08 06:12] LABS: Basophils # (auto) 0 10 ^3/uL (0-0.2); Basophils % (auto) 0.1 % (0.0-2.0); Eosinophils # (auto) 0 10 ^3/uL (0-0.8); Hemoglobin 14.5 g/dL (13.5-17.5); Lymphocytes % (auto) 10.8 % (10.0-50.0); Mean Corpuscular Hemoglobin 32.2 pg (28.0-32.0); Mean Corpuscular Hgb Conc. 34.5 g/dL (32.0-36.0); Mean Corpuscular Volume 93.2 fL (80.0-100.0); Monocytes # (auto) 1.4 10 ^3/uL (0-1.3); Monocytes % (auto) 7.7 % (0.0-12.0); Neutrophils # (auto) 15.3 10 ^3/uL (1.6-8.6); Neutrophils % (auto) 81.4 % (37.0-80.0); Nucleated Red Blood Cells % 0.1 %; Platelet Count (auto) 218 10^3/uL (140-450); Red Cell Distribution Width 12.8 % (11.8-14.3); White Blood Cell 18.8 10^3/uL (4.4-10.8)
[2025-01-08 06:29] LABS: Alanine Aminotransferase 26 U/L (7-40); Alkaline Phosphatase 61 U/L (46-116); Anion Gap 11 (5-15); Aspartate Aminotransferase 25 U/L (13-40); BUN/Creatinine Ratio 12.5 (10.0-20.0); Blood Urea Nitrogen 12 mg/dL (9-23); Calcium 9.6 mg/dL (8.7-10.4); Carbon Dioxide 28 mmol/L (20-31); Chloride 104 mmol/L (98-107); Potassium 3.8 mmol/L (3.5-5.1); Sodium 143 mmol/L (136-145); Total Protein 7.4 g/dL (5.7-8.2)
[2025-01-08 06:30] LABS: Albumin 4.6 g/dL (3.2-4.8); Bilirubin, Total 0.6 mg/dL (0.2-1.0)
[2025-01-08 06:36] LABS: Glucose 112 mg/dL (74-106)
[2025-01-08 09:00] VITALS: BP 151/96; PULSE 85; RESP 18; TEMP 98.9; O2SAT 98
[2025-01-08] MEDS: CITALOPRAM HYDROBR 20 MG TAB PO SCH (10:00)
[2025-01-08] MEDS: ASPirin 81 mg TAB PO SCH (10:54)
[2025-01-08] MEDS: FAMOTIDINE (10MG/ML) 2ML VL IV SCH (10:54)
[2025-01-08 13:00] VITALS: BP 148/98; PULSE 79; RESP 18; TEMP 99; O2SAT 98
--- NOTE | 2025-01-08 13:48 | DVHPN2 ---
Reviewed: Care Plan, H&P, Medications, Previous Orders Changes from previous H/P or p: No Changes General: Per HPI Eyes: No Pain, No Vision change, No Conjunctivae inflammation, No Eyelid inflammation, No Other, No Redness ENT: No Ear pain, No Ear discharge, No Nose pain, No Nose discharge, No Nose congestion, No Mouth pain, No Mouth swelling, No Throat pain, No Throat swelling, No Other Cardiovascular: No Chest Pain, No Palpitations, No Orthopnea, No Paroxysmal Noc. Dyspnea, No Edema, No Lt Headedness, No Other Respiratory: No Cough, No Dry, No Shortness of breath, No SOB with excertion, No Wheezing, No Hemoptysis, No Pleuritic Pain, No Sputum, No Other Gastrointestinal: Nausea, Vomiting, Abdominal Pain, Diarrhea; No Constipation, No Melena, No Hematochezia, No Other Genitourinary: No Dysuria, No Frequency, No Incontinence, No Hematuria, No Retention, No Other Musculoskeletal: No other, No neck pain, No shoulder pain, No arm pain, No back pain, No hand pain, No leg pain, No foot pain Skin: No Rash, No Lesions, No Jaundice, No Bruising, No Other Objective Vitals Vital Signs Date Time Temp Pulse Resp B/P (MAP) Pulse Ox O2 Delivery O2 Flow Rate FiO2 01/08/25 13:00 99.0 79 18 148/98 (115) 98 99.0 01/07/25 23:35 Room Air* 0 21 Intake/Output Intake and Output 01/08/25 07:00 Intake Total 1740 ml Balance 1740 ml Intake Oral 150 ml IV Total 1590 ml # Voids 2 General Appearance: Alert, Oriented X3, Cooperative Cardiovascular: Regular rate, Normal S1, Normal S2 Abdomen: Normal bowel sounds, Soft Medications Current Medications Medications Dose Ordered Sig/Thomas Route Start Time Stop Time Status Last Admin Dose Admin Alprazolam 0.5 mg Q8HPRN PRN PO 01/07/25 16:00 Famotidine 20 mg DAILY IV 01/08/25 10:00 01/08/25 10:54 20 MG Citalopram Hydrobromide 40 mg DAILY PO 01/08/25 10:00 Atorvastatin Calcium 20 mg HS PO 01/07/25 22:00 01/07/25 21:18 20 MG Aspirin 81 mg DAILY PO 01/08/25 10:00 01/08/25 10:54 81 MG Metronidazole 100 ml @ 100 mls/hr Q8HR IV 01/07/25 22:00 01/08/25 06:22 100 MLS/HR Acetaminophen/ Hydrocodone Bitart 1 tab Q4HP PRN PO 01/07/25 16:00 Ondansetron HCl 4 mg Q4HP PRN IV 01/07/25 16:00 Docusate Sodium 100 mg BIDPRN PRN PO 01/07/25 16:00 Acetaminophen 650 mg Q6HP PRN PO 01/07/25 16:00 Sodium Chloride 1,000 ml @ 75 mls/hr [id number] IV 01/07/25 16:00 01/07/25 17:41 75 MLS/HR Hydralazine HCl 10 mg Q6HP PRN IV 01/07/25 16:30 01/07/25 21:17 10 MG Nitroglycerin 0.4 mg Q5MINP PRN SL 01/07/25 16:30 Morphine Sulfate 2 mg Q30M PRN IV 01/07/25 16:30 Laboratory Results Laboratory Tests 01/08/25 04:40 Chemistry Test 01/08/25 04:40 Albumin 4.6 g/dL (3.2-4.8) Calcium Level 9.6 mg/dL (8.7-10.4) Total Protein 7.4 g/dL (5.7-8.2) LFT Test 01/08/25 04:40 Alanine Aminotransferase (ALT) 26 U/L (7-40) Alkaline Phosphatase 61 U/L (46-116) Aspartate Amino Transferase (AST) 25 U/L (13-40) Total Bilirubin 0.6 mg/dL (0.2-1.0) Urinalysis Test 01/07/25 18:30 Urine Color Yellow (Yellow) Urine Clarity Clear (Clear) Urine pH 6.0 (5.0-9.0) Urine Specific [place] 1.027 (1.001-1.035) Urine Protein 1+ (Negative) H Urine Ketones 1+ (Negative) H Urine Blood 1+ /uL (Negative) H Urine Nitrite Negative (Negative) Urine Bilirubin Negative (Negative) Urine Urobilinogen Normal mg/dL (Negative) Urine Leukocyte Esterase Negative /uL (Negative) Urine RBC 5 /hpf (0 - 3) Urine Microscopic WBC 2 /HPF (0-3) Urine Squamous Epithelial Cells None seen /hpf (<5) Urine Bacteria None seen /hpf (None Seen) Urine Mucus Few (None Seen) Urine Glucose Normal mg/dL (Normal) Labs and/or images reviewed: Labs reviewed by me, Image(s) reviewed by me Assessment/Plan Assessment/Plan The patient is a 59-year-old male with past medical history of depression, anxiety, GERD, and hyperlipidemia who presented to [facility] ED with complaint of acute abdominal pain. Patient reports symptoms progressively get worse with nausea, vomiting, and diarrhea. Patient states that last night he ate [place] food last night, and this morning around 0300 started to have onset of his symptoms, nonradiating, and started hurting after the vomiting. Patient was seen and evaluated in the ED, laboratory data shows WBC 14.6, platelets 265, sodium 144, potassium 4.3, BUN 15, creatinine 0.88, glucose 141, anion gap 18, lipase 29, blood pressure 145/89, heart rate 84, temperature 98.7 F, O2 saturation 99% on room air. Abdomen/pelvis CT revealing nonspecific 1.7 cm exophytic solid appearing isodense nodules in the upper pole of the right kidney, no acute process in the abdomen and pelvis. Patient was started on IV antibiotic regimen Flagyl, please see medication orders section in the computer. On my assessment, patient denies abdominal pain at this moment, no headache, no dizziness, no shortness of breaths, no nausea, vomiting, or diarrhea at this moment, no fever, no chills. Patient was admitted for further evaluation and medical management. Acute abdominal pain Leukocytosis, unspecified Renal mass, right Intractable nausea and vomiting gastroenteritis, bacterial likely 01/08/2025: continue with empirical iv abx Plan discussed with: Patient Date of Service: January 08, 2025 Billing Provider: DMITRY LEVI DO Common Visit Codes: [id number] INP/OBS CARE(HIGH) DMITRY LEVI DO January 08, 2025 13:48
[2025-01-08 16:55] VITALS: BP 136/91; PULSE 82; RESP 18; TEMP 99.8; O2SAT 96
[2025-01-08 21:00] VITALS: BP 149/91; PULSE 83; RESP 16; TEMP 98.5; O2SAT 94
[2025-01-08] MEDS: ALPRAZolam 0.5 MG TAB PO PRN (21:19)
[2025-01-09] VITALS (7 sets, daily range): BP systolic 123–144; BP diastolic 65–96; PULSE 60–74; RESP 16–18; TEMP 98–98.9; O2SAT 97–99
[2025-01-10 01:00] VITALS: BP 125/90; PULSE 72; RESP 18; TEMP 98.3; O2SAT 97
[2025-01-10 05:00] VITALS: BP 133/91; PULSE 70; RESP 18; TEMP 98.1; O2SAT 97
[2025-01-10 09:00] VITALS: BP 131/84; PULSE 58; RESP 16; TEMP 97.6; O2SAT 95
[2025-01-10] MEDS: CITALOPRAM HYDROBR 20 MG TAB PO SCH (09:12)
[2025-01-10 12:47] VITALS: BP 134/87; PULSE 62; RESP 16; TEMP 98.7; O2SAT 97
--- NOTE | 2025-01-10 13:25 | DVHPN2 ---
Reviewed: Care Plan, H&P, Labs, Medications, Previous Orders Changes from previous H/P or p: No Changes General: Per HPI Eyes: No Pain, No Vision change, No Conjunctivae inflammation, No Eyelid inflammation, No Other, No Redness ENT: No Ear pain, No Ear discharge, No Nose pain, No Nose discharge, No Nose congestion, No Mouth pain, No Mouth swelling, No Throat pain, No Throat swelling, No Other Cardiovascular: No Chest Pain, No Palpitations, No Orthopnea, No Paroxysmal Noc. Dyspnea, No Edema, No Lt Headedness, No Other Respiratory: No Cough, No Dry, No Shortness of breath, No SOB with excertion, No Wheezing, No Hemoptysis, No Pleuritic Pain, No Sputum, No Other Gastrointestinal: Nausea, Vomiting, Abdominal Pain, Diarrhea; No Constipation, No Melena, No Hematochezia, No Other Genitourinary: No Dysuria, No Frequency, No Incontinence, No Hematuria, No Retention, No Other Musculoskeletal: No other, No neck pain, No shoulder pain, No arm pain, No back pain, No hand pain, No leg pain, No foot pain Skin: No Rash, No Lesions, No Jaundice, No Bruising, No Other Objective Vitals Vital Signs Date Time Temp Pulse Resp B/P (MAP) Pulse Ox O2 Delivery O2 Flow Rate FiO2 01/10/25 12:47 98.7 62 16 134/87 (103) 97 98.7 01/10/25 08:00 Room Air* 0 21 Intake/Output Intake and Output 01/10/25 07:00 Intake Total 2350 ml Balance 2350 ml Intake Oral 1950 ml IV Total 400 ml # Voids 11 # Bowel Movements 3 General Appearance: Alert, Oriented X3, Cooperative HEENT: Atraumatic Cardiovascular: Regular rate, Normal S1, Normal S2 Abdomen: Normal bowel sounds, Soft Medications Current Medications Medications Dose Ordered Sig/Thomas Route Start Time Stop Time Status Last Admin Dose Admin Alprazolam 0.5 mg Q8HPRN PRN PO 01/07/25 16:00 01/09/25 20:46 0.5 MG Famotidine 20 mg DAILY IV 01/08/25 10:00 01/10/25 09:11 20 MG Atorvastatin Calcium 20 mg HS PO 01/07/25 22:00 01/09/25 20:46 20 MG Aspirin 81 mg DAILY PO 01/08/25 10:00 01/10/25 09:12 81 MG Metronidazole 100 ml @ 100 mls/hr Q8HR IV 01/07/25 22:00 01/10/25 13:19 100 MLS/HR Acetaminophen/ Hydrocodone Bitart 1 tab Q4HP PRN PO 01/07/25 16:00 Ondansetron HCl 4 mg Q4HP PRN IV 01/07/25 16:00 Docusate Sodium 100 mg BIDPRN PRN PO 01/07/25 16:00 Acetaminophen 650 mg Q6HP PRN PO 01/07/25 16:00 Sodium Chloride 1,000 ml @ 75 mls/hr [id number] IV 01/07/25 16:00 01/08/25 18:39 75 MLS/HR Hydralazine HCl 10 mg Q6HP PRN IV 01/07/25 16:30 01/07/25 21:17 10 MG Nitroglycerin 0.4 mg Q5MINP PRN SL 01/07/25 16:30 Morphine Sulfate 2 mg Q30M PRN IV 01/07/25 16:30 Citalopram Hydrobromide 20 mg DAILY PO 01/10/25 10:00 01/10/25 09:12 20 MG Laboratory Results Laboratory Tests 01/08/25 04:40 Urinalysis Test 01/07/25 18:30 Urine Color Yellow (Yellow) Urine Clarity Clear (Clear) Urine pH 6.0 (5.0-9.0) Urine Specific [place] 1.027 (1.001-1.035) Urine Protein 1+ (Negative) H Urine Ketones 1+ (Negative) H Urine Blood 1+ /uL (Negative) H Urine Nitrite Negative (Negative) Urine Bilirubin Negative (Negative) Urine Urobilinogen Normal mg/dL (Negative) Urine Leukocyte Esterase Negative /uL (Negative) Urine RBC 5 /hpf (0 - 3) Urine Microscopic WBC 2 /HPF (0-3) Urine Squamous Epithelial Cells None seen /hpf (<5) Urine Bacteria None seen /hpf (None Seen) Urine Mucus Few (None Seen) Urine Glucose Normal mg/dL (Normal) Microbiology Microbiology Date/Time Source Procedure Growth Status 01/07/25 16:19 Blood Blood Culture - Preliminary NO GROWTH AFTER 48 HOURS OF INCUBATION. Resulted Labs and/or images reviewed: Labs reviewed by me, Image(s) reviewed by me Assessment/Plan Assessment/Plan The patient is a 59-year-old male with past medical history of depression, anxiety, GERD, and hyperlipidemia who presented to [facility] ED with complaint of acute abdominal pain. Patient reports symptoms progressively get worse with nausea, vomiting, and diarrhea. Patient states that last night he ate [place] food last night, and this morning around 0300 started to have onset of his symptoms, nonradiating, and started hurting after the vomiting. Patient was seen and evaluated in the ED, laboratory data shows WBC 14.6, platelets 265, sodium 144, potassium 4.3, BUN 15, creatinine 0.88, glucose 141, anion gap 18, lipase 29, blood pressure 145/89, heart rate 84, temperature 98.7 F, O2 saturation 99% on room air. Abdomen/pelvis CT revealing nonspecific 1.7 cm exophytic solid appearing isodense nodules in the upper pole of the right kidney, no acute process in the abdomen and pelvis. Patient was started on IV antibiotic regimen Flagyl, please see medication orders section in the computer. On my assessment, patient denies abdominal pain at this moment, no headache, no dizziness, no shortness of breaths, no nausea, vomiting, or diarrhea at this moment, no fever, no chills. Patient was admitted for further evaluation and medical management. Acute abdominal pain Leukocytosis, unspecified Renal mass, right Intractable nausea and vomiting gastroenteritis, bacterial likely 01/08/2025: continue with empirical iv abx 01/09/2025: nausea is improving pt can tolerate food now Plan discussed with: Patient My Orders Orders - DMITRY LEVI DO Procedure Category Date Status Time Citalopram Tablet PHA 01/10/25 In Process (Celexa Tablet) 10:00 Date of Service: January 09, 2025 Billing Provider: DMITRY LEVI DO Common Visit Codes: [id number] INP/OBS CARE(HIGH) DMITRY LEVI DO January 10, 2025 13:24
[2025-01-10] MEDS ORDERED: MET500T PO (13:28)
[2025-01-10] MEDS ORDERED: ATOR20TA50 PO (13:28)
--- NOTE | 2025-01-10 13:29 | DVHDS2 ---
Discharge Summary Date of Admission January 07, 2025 at 16:28 Date of Discharge: January 10, 2025 Labs/Diagnostic Data: Laboratory Results Test 01/08/25 04:40 01/07/25 18:30 01/07/25 11:33 White Blood Count 18.8 10^3/uL (4.4-10.8) Red Blood Count 4.50 10^6/uL (4.5-5.90) Hemoglobin 14.5 g/dL (13.5-17.5) Hematocrit 42.0 % (41.0-53.0) Mean Corpuscular Volume 93.2 fL (80.0-100.0) Mean Corpuscular Hemoglobin 32.2 pg (28.0-32.0) Mean Corpuscular Hemoglobin Concent 34.5 g/dL (32.0-36.0) Red Cell Distribution Width 12.8 % (11.8-14.3) Platelet Count 218 10^3/uL (140-450) Mean Platelet Volume 9.0 fL (6.9-10.8) Neutrophils (%) (Auto) 81.4 % (37.0-80.0) Lymphocytes (%) (Auto) 10.8 % (10.0-50.0) Monocytes (%) (Auto) 7.7 % (0.0-12.0) Eosinophils (%) (Auto) 0.0 % (0.0-7.0) Basophils (%) (Auto) 0.1 % (0.0-2.0) Neutrophils # (Auto) 15.3 10 ^3/uL (1.6-8.6) Lymphocytes # (Auto) 2.0 10 ^3/uL (0.4-5.4) Monocytes # (Auto) 1.4 10 ^3/uL (0-1.3) Eosinophils # (Auto) 0 10 ^3/uL (0-0.8) Basophils # (Auto) 0 10 ^3/uL (0-0.2) Nucleated Red Blood Cells 0.1 % Sodium Level 143 mmol/L (136-145) Potassium Level 3.8 mmol/L (3.5-5.1) Chloride Level 104 mmol/L (98-107) Carbon Dioxide Level 28 mmol/L (20-31) Anion Gap 11 (5-15) Blood Urea Nitrogen 12 mg/dL (9-23) Creatinine 0.96 mg/dL (0.700-1.30) Glomerular Filtration Rate Calc 91 mL/min (>90) BUN/Creatinine Ratio 12.5 (10.0-20.0) Serum Glucose 112 mg/dL (74-106) Calcium Level 9.6 mg/dL (8.7-10.4) Total Bilirubin 0.6 mg/dL (0.2-1.0) Aspartate Amino Transferase (AST) 25 U/L (13-40) Alanine Aminotransferase (ALT) 26 U/L (7-40) Alkaline Phosphatase 61 U/L (46-116) Total Protein 7.4 g/dL (5.7-8.2) Albumin 4.6 g/dL (3.2-4.8) Urine Color Yellow (Yellow) Urine Clarity Clear (Clear) Urine pH 6.0 (5.0-9.0) Urine Specific [place] 1.027 (1.001-1.035) Urine Protein 1+ (Negative) Urine Ketones 1+ (Negative) Urine Blood 1+ /uL (Negative) Urine Nitrite Negative (Negative) Urine Bilirubin Negative (Negative) Urine Urobilinogen Normal mg/dL (Negative) Urine Leukocyte Esterase Negative /uL (Negative) Urine RBC 5 /hpf (0 - 3) Urine Microscopic WBC 2 /HPF (0-3) Urine Squamous Epithelial Cells None seen /hpf (<5) Urine Bacteria None seen /hpf (None Seen) Urine Mucus Few (None Seen) Urine Glucose Normal mg/dL (Normal) Urine Opiates Screen Neg (NEGATIVE) Urine Fentanyl Screen Neg (NEGATIVE) Urine Barbiturates Screen Neg (NEGATIVE) Urine Phencyclidine Screen Neg (NEGATIVE) Urine Amphetamines Screen Neg (NEGATIVE) Urine Benzodiazepines Screen Neg (NEGATIVE) Urine Cocaine Screen Neg (NEGATIVE) Urine Cannabinoids Screen Pos (NEGATIVE) Lipase 29 U/L (12-53) Other Laboratory Tests 01/08/25 04:40 Brief Hx & Hospital Course: The patient is a 59-year-old male with past medical history of depression, anxiety, GERD, and hyperlipidemia who presented to [facility] ED with complaint of acute abdominal pain. Patient reports symptoms progressively get worse with nausea, vomiting, and diarrhea. Patient states that last night he ate [place] food last night, and this morning around 0300 started to have onset of his symptoms, nonradiating, and started hurting after the vomiting. Patient was seen and evaluated in the ED, laboratory data shows WBC 14.6, platelets 265, sodium 144, potassium 4.3, BUN 15, creatinine 0.88, glucose 141, anion gap 18, lipase 29, blood pressure 145/89, heart rate 84, temperature 98.7 F, O2 saturation 99% on room air. Abdomen/pelvis CT revealing nonspecific 1.7 cm exophytic solid appearing isodense nodules in the upper pole of the right kidney, no acute process in the abdomen and pelvis. Patient was started on IV antibiotic regimen Flagyl, please see medication orders section in the computer. On my assessment, patient denies abdominal pain at this moment, no headache, no dizziness, no shortness of breaths, no nausea, vomiting, or diarrhea at this moment, no fever, no chills. Patient was admitted for further evaluation and medical management. Acute abdominal pain Leukocytosis, unspecified Renal mass, right Intractable nausea and vomiting gastroenteritis, bacterial likely 01/08/2025: continue with empirical iv abx 01/09/2025: nausea is improving pt can tolerate food now 01/10/2025: pt is feeling much better can tolerated normal diet discussed with pt regarding discharge and pt agrees. pt is anxious to go home i advise pt to continue with oral abx for another 5 days and the side effects of medications Condition at Discharge: Fair Final Diagnosis/Problems List see above Discharge Disposition: Home Discharge Instruct/Medications Diet: Cardiac 2g Na,low cholest Activity: No Restrictions, As Tolerated Discharge Statement: "Patient was advised to return to the ER or call 911 if any headaches, dizziness, shortness of breath, chest pain, abdominal pain, bleeding, fevers, or worsening of medical condition. Patient was counseled about treatment plan, medications, possible side effects, patientverbalized understanding. All questions were answered to the best of my ability. This discharge took greater then 30 minutes in planning, reviewing documentation, counseling the patient, and discussing with other team members." ASSESSMENT ASSESSMENT Assessment DMITRY LEVI DO January 10, 2025 13:29
[2025-01-10 14:22] VITALS: BP 156/97
== END 2025-01-10 15:15 | disposition home or self-care (01) | DRG 700 ==
LOC: EDBD 11:10 → ER 11:12 → EEVIPCON 16:28 → OVERFLOW 16:28 → WEST WING 23:27
PROVIDERS: ADMIT Internal Medicine; ATTEND Internal Medicine
DX: N28.89 Other specified disorders of kidney and ureter (principal); D72.829 Elevated white blood cell count, unspecified; E78.5 Hyperlipidemia, unspecified; K21.9 Gastro-esophageal reflux disease without esophagitis; F41.9 Anxiety disorder, unspecified; Z88.0 Allergy status to penicillin
CPT/HCPCS: 36415; 74018; 74176; 80048; 80053; 80307; 81001; 83690; 85025; 87040; 93005; 96365; 96372; 96375; 99291; G0378; J2405; J3490

== ENCOUNTER 2025-01-30 09:38 | Outpatient (CLI) | payer BC ==
[~2025-01-30 09:38] MED LIST changes: -ALPR0.5T PO; -ASPITAB37 PO; -CITA-73 PO; +CITA-77 PO; -CLOB0.059 TOP; +MET500T PO
[2025-01-30 11:22] LABS: Anion Gap 10 (5-15); Calcium 9.9 mg/dL (8.7-10.4); Carbon Dioxide 25 mmol/L (20-31); Chloride 105 mmol/L (98-107); Potassium 4.7 mmol/L (3.5-5.1); Sodium 140 mmol/L (136-145)
[2025-01-30 11:28] LABS: BUN/Creatinine Ratio 19.6 (10.0-20.0); Blood Urea Nitrogen 21 mg/dL (9-23); Glucose 106 mg/dL (74-106)
== END 2025-01-30 17:00 | disposition home or self-care (01) ==
LOC: LAB 09:38
PROVIDERS: ATTEND Nurse Practitioner Family
DX: Z01.812 Encounter for preprocedural laboratory examination (principal); N18.30 Chronic kidney disease, stage 3 unspecified
CPT/HCPCS: 36415; 80048